=== PATIENT | male | born 1955 | race Caucasian/White ===

== ENCOUNTER 2017-08-30 06:59 | Inpatient (IN) ==
[2017-08-30] MEDS ORDERED: ALBUTEROL 2.5 MG/3 ML NEB RESP TX STA (07:20)
[2017-08-30] MEDS ORDERED: methylPREDNISolone SOD SUC 125 MG/2 ML VIAL IV STA (07:20)
[2017-08-30] MEDS ORDERED: LEVOFLOXACIN INJ 150 ML IV ONE (07:41)
[2017-08-30] MEDS ORDERED: methylPREDNISolone SOD SUC 125 MG/2 ML VIAL ONE (07:41)
[2017-08-30] MEDS: LEVOFLOXACIN INJ 750 MG in PREMIX 1 EACH IV SCH (07:45)
[2017-08-30] MEDS ORDERED: ACETAMINOPHEN 500 MG TABLET PO STA (07:45)
[2017-08-30 07:48] LABS: Basophils # 0.1 10*3/uL (0.0-0.2); Basophils % 0.6 % (0.0-0.8); Eosinophils # 0.1 10*3/uL (0.0-0.87); Eosinophils % 0.7 % (0.00-10.9); Hemoglobin 13.9 GM/DL (14.0-18.0); Immature Granulocytes % 0.8 %; Immature Granulocytes Absolute 0.15 #; Lymphocytes # 0.7 10*3/uL (1.4-4.0); Lymphocytes % 3.9 % (21.2-54.2); Mean Corpuscular HGB Conc 33.9 GM/DL (32-36); Mean Corpuscular Hemoglobin 32 PG (27-34); Mean Corpuscular Volume 94.9 FL (87-102); Mean Platelet Volume 9.4 FL (9.6-12.0); Monocytes # 1.1 10*3/uL (0.11-0.8); Monocytes % 5.8 % (1.7-12.7); Neutrophils # 15.8 10*3/uL (1.4-7.4); Neutrophils % 88.2 % (38.7-73.9); Platelet Count 237 T/CUMM (130-400); Red Blood Count 4.32 MC/CUMM (3.8-5.5); Red Cell Distribution Width 15.3 % (9.3-17.3)
[2017-08-30] MEDS ORDERED: ACETAMINOPHEN 500 MG TABLET ONE (07:49)
[2017-08-30 08:03] LABS: INR 1.1; PT Patient Result 11.8 SECS; Partial Thromboplastin Time 34.8 SECS (0-40)
[2017-08-30 08:29] LABS: Lactic Acid 2.3 MMOL/L (0.4-2.0)
[2017-08-30 08:31] LABS: Band Neutrophils 8 % (0-10); Hypochromasia 2+; Lymphocytes 6 % (20-55); Platelet Estimate Adequate; Polychromasia Slight; Segmented Neutrophils 82 % (50-85); Target Cells Slight; Total Cells Counted 100
[2017-08-30] MEDS ORDERED: ALBUTEROL 2.5 MG/3 ML NEB RESP TX ONE (08:41)
[2017-08-30] MEDS ORDERED: MORPHINE 2 MG/1 ML SYRINGE IV PRN (08:43)
[2017-08-30] MEDS ORDERED: ONDANSETRON 4 MG/2 ML VIAL IV PRN (08:43)
[2017-08-30] MEDS ORDERED: SODIUM CHLORIDE 0.9% 1,600 ML IV ONE (08:43)
[2017-08-30] MEDS ORDERED: ALBUTEROL 2.5 MG/3 ML NEB RESP TX PRN (08:43)
[2017-08-30] MEDS ORDERED: diphenhydrAMINE CAP 25 MG CAPSULE PO PRN (08:43)
[2017-08-30] MEDS ORDERED: DOCUSATE SODIUM 100 MG CAPSULE PO PRN (08:43)
[2017-08-30] MEDS ORDERED: guaiFENesin/DM ER 600-30 MG TABLET PO PRN (08:43)
[2017-08-30] MEDS ORDERED: ACETAMINOPHEN 325 MG TABLET PO PRN (08:43)
[2017-08-30 08:51] LABS: Apearance,Urine Slightly Hazy (Clear); Bacteria,Urine Occasional /HPF (Few); Bilirubin,Urine Negative (Negative); Blood, Urine Negative (Negative); Glucose,Urine (UA) Negative (Negative); Hyaline Casts,Urine 1 /LPF (0-3); Ketones,Urine Negative (Negative); Mucus,Urine Occasional /LPF (Occasional); Nitrite,Urine Negative (Negative); Protein,Urine 30 MG/DL; RBC,Urine <1 /HPF (0-4); Squamous Epithelial Cell,Urine Occasional /HPF (0-10); Urine Color Yellow (Yellow); Urine Specific Gravity 1.026 (1.001-1.035); Urine Urobilinogen < 2.0 EU/DL (0.2-1.0); WBC,Urine 2 /HPF (0-6)
[2017-08-30 08:56] LABS: Alanine Aminotransferase 15 U/L (16-61); Albumin 2.4 G/DL (3.4-5.0); Alkaline Phosphatase 181 U/L (45-117); Aspartate Amino Transferase 17 U/L (0-37); Bilirubin,Total < 0.39 MG/DL (0.2-1.0); Blood Urea Nitrogen 15 MG/DL (7-18); Calcium 8.3 MG/DL (8.5-10.1); Glucose 111 MG/DL (74-106); Osmolality,Calculated 271.1 MOS/KG (273-304); Potassium 4.2 MMOL/L (3.5-5.1); Sodium 135 MMOL/L (136-145); Total Protein 6.4 G/DL (6.4-8.3)
[2017-08-30] MEDS: ENOXAPARIN 40 MG/0.4 ML SYRINGE SUBCUT SCH (09:50)
[2017-08-30] MEDS ORDERED: PANTOPRAZOLE 40 MG TABLET PO ONE (10:08)
[2017-08-30] MEDS ORDERED: cefTRIAXone 1,000 MG VIAL ONE (10:08)
[2017-08-30] MEDS: cefTRIAXone 1,000 MG in SYRINGE 1 EACH IV SCH (10:14)
[2017-08-30] MEDS: LACTATED RINGERS 1,000 ML IV SCH ×2 (10:14→20:49)
[2017-08-30] MEDS: PANTOPRAZOLE 40 MG TABLET PO SCH (10:14)
[2017-08-30] MEDS: SODIUM CHLORIDE 0.9% 1,000 ML IV SCH ×2 (11:00→20:49)
[2017-08-30 11:09] LABS: Barbiturates Screen,Urine Negative (Negative); Benzodiazepines Screen,Urine Positive (Negative); Cannabinoid Screen,Urine Negative (Negative); Opiate Screen,Urine Positive (Negative); Phencyclidine Screen,Urine Negative (Negative)
[2017-08-30 11:12] LABS: ABG Base Excess -3.7 MMOL/L (-2.5-2.5); ABG HCO3 21.3 MMOL/L (20-26); ABG Oxygen Saturation 97.8 % (95-100); ABG PH 7.374 (7.35-7.45); ABG PO2 99.3 MM HG (80-95); ABG TCO2 19.3 MMOL/L (23-27)
[2017-08-30] MEDS ORDERED: AZITHROMYCIN 500 MG VIAL IV ONE (11:29)
[2017-08-30] MEDS: AZITHROMYCIN INJ 500 MG in SODIUM CHLORIDE 0.9% 250 ML IV SCH (11:30)
[2017-08-30] MEDS: ALBUTEROL/IPRATROPIUM 3 ML NEB RESP TX SCH ×2 (12:55→19:35)
[2017-08-30 13:04] LABS: HIV Antigen/Antibody Result Nonreactive (Nonreactive)
[2017-08-30] MEDS: methylPREDNISolone SOD SUC 40 MG/1 ML VIAL IV SCH ×2 (16:07→23:57)
[2017-08-30] MEDS: ALPRAZolam 0.5 MG TABLET PO PRN (18:03)
[2017-08-31] MEDS: ALBUTEROL/IPRATROPIUM 3 ML NEB RESP TX SCH ×4 (00:49→19:15)
[2017-08-31] MEDS: LACTATED RINGERS 1,000 ML IV SCH ×3 (02:48→17:27)
[2017-08-31] MEDS: SODIUM CHLORIDE 0.9% 1,000 ML IV SCH ×2 (02:49→06:29)
[2017-08-31] MEDS: ALPRAZolam 0.5 MG TABLET PO PRN ×3 (04:15→21:09)
[2017-08-31 05:04] LABS: Calcium 7.8 MG/DL (8.5-10.1); Osmolality,Calculated 280.5 MOS/KG (273-304); Potassium 3.6 MMOL/L (3.5-5.1)
[2017-08-31 05:11] LABS: Basophils % 0.3 % (0.0-0.8); Hematocrit 30.5 VOL% (42.0-52.0); Immature Granulocytes Absolute 0.15 #; Lymphocytes # 0.5 10*3/uL (1.4-4.0); Lymphocytes % 6.2 % (21.2-54.2); Mean Corpuscular HGB Conc 33.8 GM/DL (32-36); Mean Corpuscular Hemoglobin 32 PG (27-34); Mean Corpuscular Volume 95.6 FL (87-102); Mean Platelet Volume 9.8 FL (9.6-12.0); Monocytes # 0.2 10*3/uL (0.11-0.8); Monocytes % 2.6 % (1.7-12.7); Neutrophils # 6.6 10*3/uL (1.4-7.4); Neutrophils % 88.9 % (38.7-73.9); Platelet Count 224 T/CUMM (130-400); Red Cell Distribution Width 15.5 % (9.3-17.3)
[2017-08-31 05:20] LABS: Hemoglobin 10.3 GM/DL (14.0-18.0); Red Blood Count 3.19 MC/CUMM (3.8-5.5); White Blood Count 7.5 T/CUMM (4-12)
[2017-08-31] MEDS ORDERED: SODIUM CHLORIDE 0.45% 1,000 ML IV SCH (09:00)
[2017-08-31] MEDS: PANTOPRAZOLE 40 MG TABLET PO SCH (09:40)
[2017-08-31] MEDS: cefTRIAXone 1,000 MG in SYRINGE 1 EACH IV SCH (09:41)
[2017-08-31] MEDS: methylPREDNISolone SOD SUC 40 MG/1 ML VIAL IV SCH ×3 (09:47→21:03)
[2017-08-31] MEDS: ENOXAPARIN 40 MG/0.4 ML SYRINGE SUBCUT SCH (09:50)
[2017-08-31] MEDS ORDERED: AZITHROMYCIN INJ 500 MG in SODIUM CHLORIDE 0.9% 250 ML IV SCH (11:00)
[2017-08-31] MEDS: LEVOFLOXACIN INJ 750 MG in PREMIX 1 EACH IV SCH (17:26)
[2017-08-31] MEDS: AZITHROMYCIN INJ 500 MG in SODIUM CHLORIDE 0.9% 250 ML IV SCH (17:27)
[2017-08-31] MEDS: SODIUM CHLORIDE 0.45% 1,000 ML IV SCH ×3 (19:22→21:57)
[2017-09-01] MEDS ORDERED: ZOLPIDEM 5 MG TABLET PO PRN (00:16)
[2017-09-01] MEDS: ALBUTEROL/IPRATROPIUM 3 ML NEB RESP TX SCH ×3 (00:17→07:45)
[2017-09-01] MEDS: SODIUM CHLORIDE 0.45% 1,000 ML IV SCH ×2 (05:36→10:35)
[2017-09-01 06:23] LABS: Basophils # 0.1 10*3/uL (0.0-0.2); Basophils % 0.4 % (0.0-0.8); Hematocrit 29.6 VOL% (42.0-52.0); Immature Granulocytes Absolute 0.57 #; Lymphocytes # 0.6 10*3/uL (1.4-4.0); Lymphocytes % 4.4 % (21.2-54.2); Mean Corpuscular HGB Conc 33.8 GM/DL (32-36); Mean Corpuscular Hemoglobin 32 PG (27-34); Mean Platelet Volume 9.7 FL (9.6-12.0); Monocytes # 0.3 10*3/uL (0.11-0.8); Monocytes % 1.9 % (1.7-12.7); Neutrophils # 12.6 10*3/uL (1.4-7.4); Neutrophils % 89.3 % (38.7-73.9); Platelet Count 316 T/CUMM (130-400); Red Blood Count 3.15 MC/CUMM (3.8-5.5); Red Cell Distribution Width 15.3 % (9.3-17.3); White Blood Count 14.2 T/CUMM (4-12)
[2017-09-01 06:48] LABS: Calcium 7.7 MG/DL (8.5-10.1); Osmolality,Calculated 281.4 MOS/KG (273-304); Potassium 3.8 MMOL/L (3.5-5.1)
[2017-09-01 06:58] LABS: Band Neutrophils 32 % (0-10); Lymphocytes 1 % (20-55); Segmented Neutrophils 67 % (50-85); Total Cells Counted 100
[2017-09-01 07:21] VITALS: BP 131/70
[2017-09-01] MEDS: ENOXAPARIN 40 MG/0.4 ML SYRINGE SUBCUT SCH (09:03)
[2017-09-01] MEDS: cefTRIAXone 1,000 MG in SYRINGE 1 EACH IV SCH (09:03)
[2017-09-01] MEDS: PANTOPRAZOLE 40 MG TABLET PO SCH (09:03)
[2017-09-01] MEDS: methylPREDNISolone SOD SUC 40 MG/1 ML VIAL IV SCH (09:04)
[2017-09-01 14:11] LABS: Procalcitonin, S 0.99 ng/mL (<=0.15)
== END 2017-09-01 10:19 | disposition left against medical advice (07) | DRG 871 ==
LOC: N.ED 06:59 → SUATTDRO 08:23 → SUPCPDRO 08:23 → N.EDINP 08:23 → N.CC 11:13 → N.5E 08-31 16:58
PROVIDERS: ADMIT Internal Medicine; ATTEND Internal Medicine